=== PATIENT | female | born 1995 | race Caucasian/White ===

== ENCOUNTER 2017-06-26 16:49 | Emergency (ER) | payer BC, OTHER ==
--- NOTE | 2017-06-26 16:53 | ED PDOC ---
Arrival/HPI - General Time Seen by Provider: 06/26/17 16:52 Historian: Patient - History of Present Illness Narrative History of Present Illness (Text): 06/26/17 16:53 22 y/o female, pmh including pylonephritis, allergic to the cephalosporins, c/o lt. hand 4th digit pain s/p hyperextend injury last night from pushing herself up from the bed. Aching pain, aggravated by touching, no numbness or tingling, no night sweat, no rash, no palpitation, no other medical or psychological complaints. Past Medical History - Provider Review Nursing Documentation Reviewed: Yes - Infectious Disease Hx of Infectious Diseases: None - Tetanus Immunization Tetanus Immunization: Unknown - Past Medical History Past Medical History: Non-Contributing - Renal Hx Pyelonephritis: Yes (2013) - Musculoskeletal/Rheumatological Hx Falls: No - Genitourinary/Gynecological Hx Urinary Tract Infection: Yes (2006) - Psychiatric Hx Substance Use: No - Suicidal Assessment Feels Threatened In Home Enviroment: No Family/Social History - Physician Review Nursing Documentation Reviewed: Yes Family/Social History: Unknown Family HX Smoking Status: Never Smoked Hx Alcohol Use: Yes Hx Substance Use: No Allergies/Home Meds Allergies/Adverse Reactions: Allergies cefuroxime axetil [From Ceftin] Allergy (Verified 05/05/16 22:58) RASH Review of Systems - Review of Systems Constitutional: absent: Fatigue, Fevers Eyes: absent: Vision Changes ENT: absent: Hearing Changes Respiratory: absent: SOB, Cough Cardiovascular: absent: Chest Pain Gastrointestinal: absent: Abdominal Pain, Nausea, Vomiting Genitourinary Female: absent: Dysuria Musculoskeletal: Arthralgias, Joint Swelling. absent: Back Pain, Neck Pain, Myalgias Skin: absent: Rash, Pruritis, Skin Lesions Psychiatric: absent: Anxiety, Depression, Suicidal Ideation Physical Exam Vital Signs Temp Pulse Resp BP Pulse Ox 06/26/17 16:58 98.1 F 92 H 18 130/79 100 - Systems Exam Head: Present: Atraumatic, Normocephalic Pupils: Present: PERRL Extroacular Muscles: Present: EOMI Conjunctiva: Present: Normal Mouth: Present: Moist Mucous Membranes Neck: Present: Normal Range of Motion Respiratory/Chest: Present: Clear to Auscultation, Good Air Exchange. No: Respiratory Distress, Accessory Muscle Use Cardiovascular: Present: Regular Rate and Rhythm, Normal S1, S2. No: Murmurs Abdomen: Present: Normal Bowel Sounds. No: Tenderness, Distention, Peritoneal Signs Back: Present: Normal Inspection Upper Extremity: Present: Normal Inspection, Other (Lt. hand 4th digit: +ttp on the DIPJ and mild ecchymosis on the ventral aspect of the ventral pad of the digit, skin intact, no nail injury, no deformity, no subungal hematoma, FROM without limitation, sensation intact, motor 5/5, +radial pulse, capillary refill < 2 seconds, neurovascular intact. ). No: Cyanosis, Edema Lower Extremity: Present: Normal Inspection. No: Edema Neurological: Present: GCS=15, CN II-XII Intact, Speech Normal Skin: Present: Warm, Dry, Normal Color. No: Rashes Psychiatric: Present: Alert, Oriented x 3, Normal Insight, Normal Concentration Medical Decision Making ED Course and Treatment: 06/26/17 17:00 -finger xray -motrin -finger splint 06/26/17 17:35 -Urine hcg: negative. -xray show +4th distal tuft fracture, finger splint applied by me with neurovascular intact. -Discharge home with naproxen, finger splint, ice compression, elevation, follow up with your own pmd and orthopedic hand surgeon within 2 days, return to the ER for any new or worsening signs or symptoms. - RAD Interpretation Radiology Orders: 06/26/17 17:04 HAND LEFT 4TH DIGIT (FINGER) [RAD] Stat PROCEDURE: Left ring finger radiographs. HISTORY: lt. hand 4th digit finger injury to DIPJ COMPARISON: None. TECHNIQUE: AP radiograph of the left hand, as well as spot oblique and lateral images of left ring finger were obtained. FINDINGS: LEFT RING FINGER: There is acute nondisplaced fracture at the distal phalanx of the 4th left finger. Remainder of the left hand (as seen on the AP view) is grossly unremarkable. JOINTS: Normal. SOFT TISSUES: Normal. OTHER FINDINGS: None. IMPRESSION: Acute nondisplaced fracture at the distal phalanx of the 4th finger. Hand Tufter: Radiologist - Medication Orders Current Medication Orders: Discontinued Medications Acetaminophen (Tylenol 325mg Tab) 650 mg PO STAT STA Stop: 06/26/17 17:05 Last Admin: 06/26/17 17:14 Dose: 650 mg - PA / JEWEL [employer] / Resident Statement MD/DO has reviewed & agrees with the documentation as recorded. Disposition/Present on Arrival - Present on Arrival Any Indicators Present on Arrival: No History of DVT/PE: No History of Uncontrolled Diabetes: No Urinary Catheter: No History of Decub. Ulcer: No History Surgical Site Infection Following: None - Disposition Have Diagnosis and Disposition been Completed?: Yes Diagnosis: Finger fracture Disposition: HOME/ ROUTINE Disposition Time: 17:35 Patient Plan: Discharge Patient Problems: Current Active Problems Problem Status Onset Finger fracture Acute Condition: GOOD Additional Instructions: -Discharge home with naproxen, finger splint, ice compression, elevation, follow up with your own pmd and orthopedic hand surgeon within 2 days, return to the ER for any new or worsening signs or symptoms. Prescriptions: Naproxen 500 mg PO BID PRN #[id number] tab PRN Reason: Other Referrals: Jennifer Pablo, [Primary Care Provider] - Follow up with primary Grabiel Munoz MD [Staff Provider] - Follow up with primary Forms: WORK NOTE
[2017-06-26 16:59] VITALS: BP 130/79; PULSE 92; RESP 18; TEMP 98.1; O2SAT 100
[2017-06-26 17:04] VITALS: BMI 18.8
--- NOTE | 2017-06-26 17:51 | RAD ---
PROCEDURE: Left ring finger radiographs. HISTORY: lt. hand 4th digit finger injury to DIPJ COMPARISON: None. TECHNIQUE: AP radiograph of the left hand, as well as spot oblique and lateral images of left ring finger were obtained. FINDINGS: LEFT RING FINGER: There is acute nondisplaced fracture at the distal phalanx of the 4th left finger. Remainder of the left hand (as seen on the AP view) is grossly unremarkable. JOINTS: Normal. SOFT TISSUES: Normal. OTHER FINDINGS: None. IMPRESSION: Acute nondisplaced fracture at the distal phalanx of the 4th finger.
== END 2017-06-26 17:59 | disposition home or self-care (01) ==
LOC: ED 16:49
DX: S62.665A Nondisplaced fracture of distal phalanx of left ring finger, initial encounter for closed fracture (principal); X58.XXXA Exposure to other specified factors, initial encounter